=== PATIENT | female | born 1980 | race Caucasian/White ===

== ENCOUNTER → 2016-11-13 | Outpatient (CLI) | payer OTHER ==
[~2016-11-13] MED LIST: ANT25 PO; CHOL1000 PO; CLON1TAB3 PO; FLX/5; MULTTAB58 PO; OMEG10007 PO; ONDA4TAB7 SL; PROP20TA67 PO
[2016-11-13 18:03] LABS: BASO % 0.3 %; BASO ABS # 0.03 K/uL (0-0.2); COMPLETE YES; EOS % 0.9 %; HEMATOCRIT 40.2 % (37-47); IG% 0.1 %; LYMPH ABS # 2.04 K/uL (1.2-3.4); MEAN CELL VOLUME 85.9 fL (80-100); MEAN CORPUSCULAR HEMOGLOBIN 28.8 pg (25-34); MEAN CORPUSCULAR HGB CONC 33.6 g/dl (32-36); MEAN PLATELET VOLUME 11.8 fL (7.4-10.4); MONO % 8.9 %; NEUT % 70.8 %; PLATELET COUNT 181 K/uL (130-400); RED BLOOD COUNT 4.68 M/uL (4.2-5.4); WHITE BLOOD COUNT 10.74 K/uL (4.8-10.8)
[2016-11-17 14:24] LABS: HERPES SIMPLEX AB IGG-1 0.01; HERPES SIMPLEX AB IGG-2 >5.00
== END | disposition home or self-care (01) ==
LOC: C.LAB1850 16:54
PROVIDERS: ATTEND Obstetrics & Gynecology
DX: N92.0 Excessive and frequent menstruation with regular cycle (principal); Z86.19 Personal history of other infectious and parasitic diseases

== ENCOUNTER → 2017-01-07 | Outpatient (CLI) | payer OTHER | END | disposition home or self-care (01) | LOC: C.PAPS 14:40 | PROVIDERS: ATTEND Obstetrics & Gynecology | DX: Z12.4 Encounter for screening for malignant neoplasm of cervix (principal); Z87.42 Personal history of other diseases of the female genital tract ==

== ENCOUNTER → 2017-01-07 | Outpatient (CLI) | payer OTHER ==
[2017-01-09 13:22] LABS: CHLAMYDIA TRACH RNA*** NOT DETECTED (NOT DETECTED); GC (NEIS GONORRHOEAE)RNA** NOT DETECTED (NOT DETECTED)
== END | disposition home or self-care (01) ==
LOC: C.LABSPEC 15:52
PROVIDERS: ATTEND Obstetrics & Gynecology
DX: Z11.3 Encounter for screening for infections with a predominantly sexual mode of transmission (principal)

== ENCOUNTER → 2017-02-06 | Outpatient (CLI) | payer OTHER ==
[~2017-02-06] MED LIST changes: -ANT25 PO; -CLON1TAB3 PO; -ONDA4TAB7 SL
--- NOTE | 2017-02-06 12:07 | DIAGNOSTIC IMAGING REPORT ---
THYROID ULTRASOUND. Soft tissue neck ultrasound. HISTORY: Nodule. . R22.1 Neck [id number] COMPARISON: None. FINDINGS: At the site of clinically palpable right submandibular nodularity, a nodule resembling a reactive lymph node is present measuring 9 x 4 x 8 mm. Morphology is considered benign. A fatty hilum is present. IMPRESSION: The area of palpable nodularity appears to represent a benign appearing reactive lymph node. If absolute confirmation is desired, either fine-needle aspiration or follow-up ultrasound in 3-6 months is suggested Electronically signed by: Rhett Ni M.D. 02/06/2017 12:05 PM Dictated Date/Time: 02/06/2017 12:03 PM
== END | disposition home or self-care (01) ==
LOC: C.ULTR 11:35
PROVIDERS: ATTEND Internal Medicine
DX: R22.1 Localized swelling, mass and lump, neck (principal)

== ENCOUNTER → 2017-02-16 | Day surgery (SDC) | payer OTHER ==
[2017-01-22 15:21] VITALS: Ht 180.3 cm; Wt 93.6 kg
[~2017-02-16] VITALS: Ht 180.3 cm; Wt 93.6 kg
[~2017-02-16] MED LIST changes: +ATROPINE SULFATE 0.1 MG/ML 5ML SYR IV PRN; +DEXAMETHASONE SOD INJ 4 MG/ML VIAL ONE; +EpHEDrine SULFATE INJ 50 MG/ML AMP IV PRN; +FENTANYL CITRATE INJ 50 MCG/1 ML 2 ML VIAL ONE; +KETOROLAC TROMETHAMINE 30 MG/ML VIAL IV. PRN; +KETOROLAC TROMETHAMINE 30 MG/ML VIAL ONE; +LACTATED RINGER'S 1000ML 1,000 ML IV SCH; +LIDOCAINE HCL 2% 2 ML VIAL (20MG/ML) ONE; +MIDAZOLAM HCL 1 MG/ML 2ML VIAL ONE; +ONDANSETRON INJ 2 MG/ML 2 ML VIAL IV PRN; +ONDANSETRON INJ 2 MG/ML 2 ML VIAL ONE; +OXYCODONE/ACETAMINOPHEN 5-325 TAB PO PRN; +PROMETHAZINE HCL INJ 25 MG in SODIUM CHLORIDE 0.9% 50ML 50 ML IV PRN; +PROPOFOL IV EMULSION 10 MG/ML 20 ML VIAL IV ONE; +SODIUM CHLORIDE 0.9% 1000ML 1,000 ML IV SCH; +SUCCINYLCHOLINE CHLORIDE 20 MG/ML 10 ML VIAL IV ONE
--- NOTE | 2017-02-16 08:43 | History & Physical Bridge - [place] ---
H&P Re-Evaluation Bridge Note: I have examined the patient, reviewed the History & Physical and in the interval since the performance of the History & Physical I have noted the following changes of clinical significance: No changes noted
--- NOTE | 2017-02-16 09:26 | [facility] Post Operative Brief Note ---
Immediate Operative Summary Operative Date February 16, 2017. Pre-Operative Diagnosis Endometrial Polyp Post-Operative Diagnosis Same Procedure(s) Performed Dilatation And Curettage, Hysteroscopy, Polypectomy Surgeon Dr. Stokes Dough Mixing Machine Operator Surgeon(s) None Estimated Blood Loss 5 mL Findings Uterus sounded to 9cm. Bilateral tubal ostia visualized. Large amount of fluffy endometrial tissue. Specimens A. Endometrial Curettage Drains bladder drained prior to procedure Anesthesia general Complication(s) None Disposition Recovery Room / PACU
--- NOTE | 2017-02-16 09:30 | Discharge Instructions-SurgCtr ---
Discharge Instructions Date of Service February 16, 2017. Visit Reason for Visit: Painful Periods, Heavy Periods Discharge Discharge Diagnosis / Problem: s/p hysteroscopy, D&C Discharge Goals Goal(s): Diagnostic testing, Therapeutic intervention Activity Recommendations Activity Limitations: per Instructions/Follow-up section Anesthesia . Post Anesthesia Instructions: If you have had General Anesthesia or IV Sedation: * Do not drive today. * Resume driving when surgeon permits. * Do not make important decisions or sign legal documents today. * Call surgeon for: 1. Temperature elevations greater than 101 degrees F. 2. Uncontrollable pain. 3. Excessive bleeding. 4. Persistent nausea and vomiting. 5. Medication intolerance (nausea, vomiting or rash). * For nausea and vomiting use only clear liquids such as: tea, soda, bouillon until nausea subsides, then gradually increase diet as tolerated. * If you have any concerns or questions, call your surgeon's office. If physician is unavailable and it is an emergency, call 911 or go to the nearest emergency room. . Instructions / Follow-Up Instructions / Follow-Up ACTIVITY RECOMMENDATIONS: * Avoid tampons, douching, hot tubs, pools, and intercourse until bleeding has stopped. * May shower as usual. * No strenuous activity for 24-48 hours. After 24-48 hours, you may do anything you feel like doing (driving and sports are okay). SPECIAL CARE INSTRUCTIONS: Special Diet: * Mild nausea may occur in the immediate post-operative period. * Take clear liquids such as tea, cola or bouillon until all nausea has subsided; you may then resume your normal diet. Special Care: * Light bleeding and vaginal spotting can last from a few days to 3-4 weeks. Call your doctor if bleeding becomes heavier than the heaviest part of your period. * Check your temperature twice a day for one week. If it goes above 100.4 degrees Fahrenheit (38.0 Celsius), notify your doctor. * Call your doctor's office for an appointment for 6 weeks after your surgery. FOLLOW-UP VISIT: Call your doctor's office for an appointment for 6 weeks after your surgery. Diet Recommendations Home Diet: resume previous diet Procedures Procedures Performed: Dilatation And Curettage, Hysteroscopy, Polypectomy Pending Studies Studies pending at discharge: no List of pending studies: pathology Medical Emergencies . Who to Call and When: Medical Emergencies: If at any time you feel your situation is an emergency, please call 911 immediately. . Non-Emergent Contact Non-Emergency issues call your: Primary Care Provider, Senior Firmware Engineer . . "Provider Documentation" section prepared by Montse Stokes. .
[2017-02-16] MEDS: FENTANYL CITRATE INJ 50 MCG/1 ML 2 ML VIAL IV PRN ×4 (09:51→10:08)
[2017-02-16 10:35] VITALS: TEMP 36.5
--- NOTE | 2017-02-16 10:51 | Anesthesia Progress Nt - [facility] ---
Anesthesia Post Op Note Date & Time February 16, 2017 at 10:50 Vital Signs Pain Intensity: 8.0 Vital Signs Past 12 Hours Date Time Temp Pulse Resp B/P Pulse Ox O2 Delivery O2 Flow Rate FiO2 02/16/17 10:35 36.5 66 14 114/76 98 Room Air 02/16/17 10:16 111/84 02/16/17 10:15 46 14 97 02/16/17 10:15 46 14 02/16/17 10:13 36.5 60 12 104/75 98 Room Air 02/16/17 10:11 104/75 02/16/17 10:10 59 27 94 02/16/17 10:10 40 27 02/16/17 10:06 117/81 02/16/17 10:05 57 17 02/16/17 10:05 57 17 95 02/16/17 10:01 128/72 02/16/17 10:00 58 18 95 02/16/17 10:00 55 18 02/16/17 09:56 125/88 02/16/17 09:55 60 15 95 02/16/17 09:55 57 15 02/16/17 09:51 131/84 02/16/17 09:50 60 24 02/16/17 09:50 60 24 94 02/16/17 09:46 129/88 02/16/17 09:45 63 14 02/16/17 09:45 62 14 100 02/16/17 09:41 143/94 02/16/17 09:40 58 19 02/16/17 09:40 59 19 100 02/16/17 09:36 132/93 02/16/17 09:35 58 22 99 02/16/17 09:35 59 22 02/16/17 09:31 135/88 02/16/17 09:30 74 13 99 02/16/17 09:30 73 13 02/16/17 09:26 115/78 02/16/17 09:25 36.2 60 18 115/ 97 Mask 6 02/16/17 07:41 36.7 73 20 124/74 98 Room Air Notes Mental Status: alert / awake / arousable, participated in evaluation Pt Amnestic to Procedure: Yes Nausea / Vomiting: adequately controlled Pain: adequately controlled Airway Patency, RR, SpO2: stable & adequate BP & HR: stable & adequate Hydration State: stable & adequate Anesthetic Complications: no major complications apparent
[2017-02-16 11:00] VITALS: BP 113/77; PULSE 66; O2SAT 97
--- NOTE | 2017-02-16 11:28 | OPERATIVE REPORT ---
DATE OF OPERATION: 02/16/2017 PREOPERATIVE DIAGNOSIS: Endometrial polyp. POSTOPERATIVE DIAGNOSIS: Same. PROCEDURES PERFORMED: Dilation and curettage, hysteroscopy and polypectomy with MyoSure device. SURGEON: Dr. Montse Stokes. ENGINEERING GEOLOGIST: None. ESTIMATED BLOOD LOSS: 5 mL. FINDINGS: Uterus sounded to 9 mm. Bilateral tubal ostia visualized. A large amount of fluffy endometrial tissue. SPECIMENS: Endometrial curettage. DRAINS: Bladder drained prior procedure. ANESTHESIA: General. COMPLICATIONS: None. DISPOSITION: Stable and good to recovery room. INDICATIONS FOR PROCEDURE: The patient is a 36-year-old G0, who has heavy menses and finding of an endometrial polyp on ultrasound. DESCRIPTION OF PROCEDURE: The patient was seen in the preoperative holding area, where risks, benefits, and alternatives to surgery were reviewed. She elected to proceed with surgery. All questions were answered. She was taken to the operating room, where general anesthesia was introduced. She was prepared and draped in the usual sterile fashion in the dorsal lithotomy position with feet in candy cane stirrups. A timeout was confirmed. Bladder was drained. A weighted speculum was placed in the vagina. Cervix was visualized and the anterior lip was grasped with a single tooth tenaculum. The uterus was sounded and the cervix was sequentially dilated to admit the hysteroscope. Hysteroscope was inserted and pictures were taken. The MyoSure device was used to perform a curettage of endometrial tissue, likely what was appearing as endometrial polyp on ultrasound. The hysteroscope was withdrawn and a sharp curette was used to perform a gentle curettage of the uterine cavity. All specimens were sent to pathology as endometrial curettings. All instruments were removed from the uterus and vagina and excellent hemostasis was observed. The patient was awoken from anesthesia and was taken to recovery area in stable and good condition. I attest to the content of the Intraoperative Record and any orders documented therein. Any exceptio ns are noted below.
== END | disposition home or self-care (01) ==
LOC: X.SURG 07:26
PROVIDERS: ATTEND Obstetrics & Gynecology
DX: N84.0 Polyp of corpus uteri (principal); F41.9 Anxiety disorder, unspecified; F17.210 Nicotine dependence, cigarettes, uncomplicated; Z68.29 Body mass index [BMI] 29.0-29.9, adult; Z91.040 Latex allergy status; Z98.890 Other specified postprocedural states; Z83.3 Family history of diabetes mellitus; Z81.8 Family history of other mental and behavioral disorders

== ENCOUNTER → 2017-03-17 | Outpatient (CLI) | payer OTHER ==
[~2017-03-17] MED LIST changes: -ATROPINE SULFATE 0.1 MG/ML 5ML SYR IV PRN; -DEXAMETHASONE SOD INJ 4 MG/ML VIAL ONE; -EpHEDrine SULFATE INJ 50 MG/ML AMP IV PRN; -FENTANYL CITRATE INJ 50 MCG/1 ML 2 ML VIAL ONE; -KETOROLAC TROMETHAMINE 30 MG/ML VIAL IV. PRN; -KETOROLAC TROMETHAMINE 30 MG/ML VIAL ONE; -LACTATED RINGER'S 1000ML 1,000 ML IV SCH; -LIDOCAINE HCL 2% 2 ML VIAL (20MG/ML) ONE; -MIDAZOLAM HCL 1 MG/ML 2ML VIAL ONE; -ONDANSETRON INJ 2 MG/ML 2 ML VIAL IV PRN; -ONDANSETRON INJ 2 MG/ML 2 ML VIAL ONE; -OXYCODONE/ACETAMINOPHEN 5-325 TAB PO PRN; -PROMETHAZINE HCL INJ 25 MG in SODIUM CHLORIDE 0.9% 50ML 50 ML IV PRN; -PROPOFOL IV EMULSION 10 MG/ML 20 ML VIAL IV ONE; -SODIUM CHLORIDE 0.9% 1000ML 1,000 ML IV SCH; -SUCCINYLCHOLINE CHLORIDE 20 MG/ML 10 ML VIAL IV ONE
== END | disposition home or self-care (01) ==
LOC: C.LAB1850 09:53
PROVIDERS: ATTEND Obstetrics & Gynecology
DX: Z30.09 Encounter for other general counseling and advice on contraception (principal)

== ENCOUNTER → 2017-09-16 | Outpatient (CLI) | payer OTHER ==
--- NOTE | 2017-09-16 13:10 | DIAGNOSTIC IMAGING REPORT ---
CHEST 2 VIEWS ROUTINE HISTORY: 37 years-old Female R06.02 Shortness of breath acute shortness of breath COMPARISON: Chest radiograph 02/12/2014 TECHNIQUE: PA and lateral views of the chest FINDINGS: Cardiomediastinal and hilar silhouettes are within normal limits. No pneumothorax, pleural effusion, focal airspace consolidation or overt pulmonary edema. Bones of the chest are grossly intact. IMPRESSION: No acute process. The above report was generated using voice recognition software. It may contain grammatical, syntax or spelling errors. Electronically signed by: Anibal Blum M.D. 09/16/2017 1:08 PM Dictated Date/Time: 09/16/2017 1:07 PM
[2017-09-16 14:45] LABS: BASO % 0.4 %; BASO ABS # 0.03 K/uL (0-0.2); COMPLETE YES; EOS % 2.7 %; HEMATOCRIT 43.7 % (37-47); IG% 0.3 %; LYMPH % 32.8 %; LYMPH ABS # 2.55 K/uL (1.2-3.4); MEAN CELL VOLUME 85.9 fL (80-100); MEAN CORPUSCULAR HEMOGLOBIN 28.7 pg (25-34); MEAN CORPUSCULAR HGB CONC 33.4 g/dl (32-36); NEUT % 53.8 %; PLATELET COUNT 208 K/uL (130-400); RED BLOOD COUNT 5.09 M/uL (4.2-5.4); WHITE BLOOD COUNT 7.78 K/uL (4.8-10.8)
[2017-09-16 14:58] LABS: ALT/SGPT 35 U/L (12-78); BLOOD UREA NITROGEN 11 mg/dl (7-18); CARBON DIOXIDE 28 mmol/L (21-32); CHLORIDE 105 mmol/L (98-107); CREATININE 0.86 mg/dl (0.60-1.20); GLUCOSE 83 mg/dl (70-99); POTASSIUM 3.9 mmol/L (3.5-5.1); SODIUM 139 mmol/L (136-145)
[2017-09-16 15:09] LABS: ALKALINE PHOSPHATASE 62 U/L (45-117); AST/SGOT 25 U/L (15-37)
== END | disposition home or self-care (01) ==
LOC: C.RAD1850 12:38
PROVIDERS: ATTEND Internal Medicine
DX: Z00.00 Encounter for general adult medical examination without abnormal findings (principal); R06.02 Shortness of breath; R53.83 Other fatigue

== ENCOUNTER → 2018-01-15 | Outpatient (CLI) | payer OTHER | END | disposition home or self-care (01) | LOC: C.LABSPEC 16:00 | PROVIDERS: ATTEND Obstetrics & Gynecology | DX: N89.8 Other specified noninflammatory disorders of vagina (principal) ==